=== PATIENT | female | born 1945 | race Caucasian/White ===

== ENCOUNTER 2023-05-17 09:01 | Outpatient (CLI) | payer BC | END 2023-05-17 09:02 | disposition home or self-care (01) | LOC: DI 09:01 | PROVIDERS: ATTEND Internal Medicine | DX: R01.1 Cardiac murmur, unspecified (principal); I34.0 Nonrheumatic mitral (valve) insufficiency; I49.1 Atrial premature depolarization; I51.7 Cardiomegaly | CPT/HCPCS: 93306 ==

== ENCOUNTER 2023-08-14 20:12 | Outpatient (CLI) | payer MEDICARE, BC | END 2023-08-14 20:13 | disposition EMS.NT | LOC: EMS 20:12 | DX: S61.012A Laceration without foreign body of left thumb without damage to nail, initial encounter (principal); W26.0XXA Contact with knife, initial encounter; Y93.G1 Activity, food preparation and clean up; Y92.000 Kitchen of unspecified non-institutional (private) residence as the place of occurrence of the external cause ==

== ENCOUNTER 2023-08-14 21:01 | Emergency (ER) | payer MEDICARE, BC ==
[2023-08-14 21:17] VITALS: BP 150/90; O2SAT 98
== END 2023-08-14 22:33 | disposition left against medical advice (07) ==
LOC: ED 21:01
DX: Z53.21 Procedure and treatment not carried out due to patient leaving prior to being seen by health care provider (principal)

== ENCOUNTER 2023-11-14 10:50 | Outpatient (CLI) | payer BC, MEDICARE | END 2023-11-14 10:51 | disposition home or self-care (01) | LOC: RT 10:50 | PROVIDERS: ATTEND Internal Medicine | DX: R06.09 Other forms of dyspnea (principal); J34.89 Other specified disorders of nose and nasal sinuses | CPT/HCPCS: 94010; 94729 ==

== ENCOUNTER 2023-12-27 08:00 | Outpatient (CLI) | payer BC ==
--- NOTE | 2023-12-27 15:09 | XRAY Report ---
PROCEDURE: Ribs w/PA Chest 3+V LT INDICATIONS: LEFT SIDED RIB PAIN TECHNIQUE: 2 views of the ribs were acquired, along with a single view chest. COMPARISON: None. FINDINGS: Surgical changes and devices: None. Bones and chest wall: No fractures or dislocations. No suspicious bony lesions. Overlying soft tis sues appear unremarkable. Lungs and pleura: No pleural effusions or pneumothorax. Lungs appear clear. Lungs are hyperexpand ed suggestive of COPD. Mediastinum: Mediastinal contours appear normal. Heart size is normal. IMPRESSION: No visualized acute fracture or dislocation. However, occult injury cannot be excluded. Recommend rios rt interval imaging follow-up in 7-10 days as clinically indicated for additional evaluation. Reviewed by: Gisella Higgins MD on 12/27/2023 3:08 PM PDT Approved by: Gisella Higgins MD on 12/27/2023 3:08 PM PDT Station ID: [id number]
== END 2023-12-27 23:59 | disposition home or self-care (01) ==
LOC: DI.S 08:00
PROVIDERS: ATTEND Registered Nurse
DX: R07.81 Pleurodynia (principal)

== ENCOUNTER 2023-12-27 09:45 | Outpatient (CLI) | payer BC ==
--- NOTE | 2023-12-28 09:39 | Mammography Report ---
BILATERAL DIGITAL SCREENING MAMMOGRAM 3D/2D: 12/27/2023 CLINICAL: Routine screening. Family history of breast cancer. Comparison: 03/15/16 [facility] Both breasts are heterogeneously dense, which may obscure small masses (category c / 51-75% glandular tissue). No significant masses, calcifications, or other findings are seen in either breast. IMPRESSION: NEGATIVE There is no mammographic evidence of malignancy. A 1 year screening mammogram is recommended. Based on the Tyrer Cuzick model (a risk assessment model) the patient's lifetime risk is 9.0% and her 10 year risk is 0.0%. According to the ACR, ACS, and NCCN guidelines, an annual breast MRI exam xiomara g with mammogram is recommended if the patient's lifetime risk is 20% or greater. This exam was interpreted at Station ID: [id number]. NOTE: For mammograms, a report in lay terms will be sent to the patient. Approximately 15% of breast malignancies will not be visualized mammographically. In the management of a palpable breast mass, a negative mammogram must not discourage biopsy of a clinically suspicious lesion. Electronically Signed By: Jason Gary M.D. lc/:12/27/2023 11:00:54 letter sent: No_Letter ACR BI-RADS Category 1: Negative 3341F PARENCHYMAL PATTERN: (D) - The breast(s) demonstrate(s) heterogeneously dense fibroglandular talat ken. BI-RADS CATEGORY: (1) - 1 RECOMMENDATION: (ANNUAL) - Recommend routine annual screening mammography. [id number] 1 year screening LATERALITY: (B)
== END 2023-12-27 09:46 | disposition home or self-care (01) ==
LOC: DI.S 09:45
DX: Z12.31 Encounter for screening mammogram for malignant neoplasm of breast (principal); R92.333 Mammographic heterogeneous density, bilateral breasts; Z80.3 Family history of malignant neoplasm of breast